=== PATIENT | female | born 1950 | race Caucasian/White ===

== ENCOUNTER 2018-01-17 06:34 | Emergency (ER) | payer MEDICARE, OTHER ==
[2018-01-17 06:42] VITALS: TEMP 98.2
[2018-01-17] MEDS ORDERED: ONDANSETRON 4 MG/2 ML VIAL IVP STA (07:13)
[2018-01-17] MEDS ORDERED: diphenhydrAMINE 50 MG/ML 1 ML VIAL IVP STA (07:13)
[2018-01-17] MEDS ORDERED: SODIUM CHLORIDE 0.9% 1,000 ML IV STA (07:13)
--- NOTE | 2018-01-17 07:15 | ED ---
General Adult HPI - General Chief complaint: Nausea/Vomiting/Diarrhea Stated complaint: Nausea, vomiting, headache Time Seen by Provider: 01/17/18 07:01 Source: patient, family Mode of arrival: ambulatory Limitations: no limitations - History of Present Illness Initial comments: 67years female complains about headache, nausea, vomiting, poor appetite she states pins and needles feels flushed. She was treated with the antihistamine with decongestant Zantac and prednisone 50 days ago for an ALLERGIC reaction she feels she is reacting to one of these medications. Does have a headache no chest pain as such she came in with a tachycardia heart rate was 121 he denies any shortness of breath now no no chest pain with a deep breaths no fever no chills no cough - Related Data Home Medications Medication Instructions Recorded Confirmed Levothyroxine Sodium [Synthroid] 25 mcg PO DAILY 05/01/15 01/17/18 Cholecalciferol [Vitamin D3] 1,000 unit PO DAILY 01/17/18 01/17/18 Lofibra Unknown Dose 1 tab PO DAILY 01/17/18 01/17/18 Ranitidine HCl [Zantac] 150 mg PO HS 01/17/18 01/17/18 methylPREDNISolone [Medrol Dose See Taper PO DAILY 01/17/18 01/17/18 Pack] Allergies Allergy/AdvReac Type Severity Reaction Status Date / Time propoxyphene napsylate Allergy Unknown Verified 01/17/18 07:04 [From Aranza] Review of Systems ROS Statement: Those systems with pertinent positive or pertinent negative responses have been documented in the HPI. ROS Other: All systems not noted in ROS Statement are negative. Past Medical History Past Medical History: GERD/Reflux, Hyperlipidemia, Thyroid Disorder History of Any Multi-Drug Resistant Organisms: None Reported Past Surgical History: Orthopedic Surgery Additional Past Surgical History / Comment(s): eye surgery and right knee arthroscopy Past Psychological History: No Psychological Hx Reported Smoking Status: Never smoker Past Alcohol Use History: None Reported Past Drug Use History: None Reported General Exam - General Exam Comments Initial Comments: General: The patient is awake and alert, in no distress, and does not appear acutely ill. Does look tired Skin: Skin is warm and dry and no rashes or lesions are noted. Eye: Pupils are equal, round and reactive to light, extra-ocular movements are intact; there is normal conjunctiva bilaterally. Ears, nose, mouth and throat: There are moist mucous membranes and no oral lesions. Neck: The neck is supple, there is no tenderness or JVD. Cardiovascular: There is a regular rate and rhythm. No murmur, rub or gallop is appreciated. Respiratory: To auscultation bilateral, no wheezing no rhonchi no distress respiratory schumacher noticed Gastrointestinal: Soft, non-distended, non-tender abdomen without masses or organomegaly noted. There is no rebound or guarding present. Bowel sounds are unremarkable. Back: There is no tenderness to palpation in the midline. There is no obvious deformity. Musculoskeletal: Normal ROM, no tenderness, There is no pedal edema. There is no calf tenderness or swelling. No cords were appreciated. Neurological: CN II-XII intact, Cranial nerves III through XII are intact. There are no obvious motor or sensory deficits. Coordination appears grossly intact. Speech is normal. Psychiatric: Cooperative, appropriate mood & affect, normal judgment. Limitations: no limitations Course Vital Signs 01/17/18 01/17/18 06:35 08:17 Temperature 98.2 F Pulse Rate 121 H 61 Respiratory 20 17 Rate Blood Pressure 187/81 154/74 O2 Sat by Pulse 99 95 Oximetry Reassessed at term 8:20 AM, she feels lot better her CBC, CMP, troponin, EKG are unremarkable. She is advised to discontinue the Z-Talon be in the prednisone because prednisone and Zantac the both cutdown gives a palpitation and the symptoms he had, she is advised to continue Zantac 150 mg twice daily for next 34 days and switch back to Claritin without the decongestant and avoid hot water showers with the lukewarm water for the ongoing skin rash EKG Findings - EKG Comments: EKG Findings:: EKG is a sinus rhythm ventricular rate is 62 MA interval is 136 QRS duration is 92 QT/QTc is 480/424 review of this EKG does not reveal any ST elevation or ST depression Medical Decision Making - Lab Data Result diagrams: 01/17/18 07:00 01/17/18 07:00 Lab Results 01/17/18 01/17/18 01/17/18 Range/Units 07:00 07:00 07:00 WBC 8.6 (3.8-10.6) k/uL RBC 4.77 (3.80-5.40) m/uL Hgb 14.6 (11.4-16.0) gm/dL Hct 42.1 (34.0-46.0) % MCV 88.2 (80.0-100.0) fL MCH 30.6 (25.0-35.0) pg MCHC 34.7 (31.0-37.0) g/dL RDW 11.9 (11.5-15.5) % Plt Count 336 (150-450) k/uL Neutrophils % 72 % Lymphocytes % 19 % Monocytes % 6 % Eosinophils % 1 % Basophils % 0 % Neutrophils # 6.2 (1.3-7.7) k/uL Lymphocytes # 1.7 (1.0-4.8) k/uL Monocytes # 0.5 (0-1.0) k/uL Eosinophils # 0.1 (0-0.7) k/uL Basophils # 0.0 (0-0.2) k/uL PT (9.0-12.0) sec INR (<1.2) APTT (22.0-30.0) sec Sodium 142 (137-145) mmol/L Potassium 4.0 (3.5-5.1) mmol/L Chloride 103 (98-107) mmol/L Carbon Dioxide 25 (22-30) mmol/L Anion Gap 14 mmol/L BUN 15 (7-17) mg/dL Creatinine 0.57 (0.52-1.04) mg/dL Est GFR (CKD-EPI)AfAm >90 (>60 ml/min/1.73 sqM) Est GFR (CKD-EPI)NonAf >90 (>60 ml/min/1.73 sqM) Glucose 122 H (74-99) mg/dL Calcium 10.2 (8.4-10.2) mg/dL Magnesium 2.0 (1.6-2.3) mg/dL Total Bilirubin 0.9 (0.2-1.3) mg/dL AST 20 (14-36) U/L ALT 29 (9-52) U/L Alkaline Phosphatase 57 (38-126) U/L Total Creatine Kinase 25 L (30-135) U/L CK-MB (CK-2) 0.3 (0.0-2.4) ng/mL CK-MB (CK-2) Rel Index 1.2 Troponin I <0.012 (0.000-0.034) ng/mL Total Protein 7.5 (6.3-8.2) g/dL Albumin 4.8 (3.5-5.0) g/dL 01/17/18 Range/Units 07:00 WBC (3.8-10.6) k/uL RBC (3.80-5.40) m/uL Hgb (11.4-16.0) gm/dL Hct (34.0-46.0) % MCV (80.0-100.0) fL MCH (25.0-35.0) pg MCHC (31.0-37.0) g/dL RDW (11.5-15.5) % Plt Count (150-450) k/uL Neutrophils % % Lymphocytes % % Monocytes % % Eosinophils % % Basophils % % Neutrophils # (1.3-7.7) k/uL Lymphocytes # (1.0-4.8) k/uL Monocytes # (0-1.0) k/uL Eosinophils # (0-0.7) k/uL Basophils # (0-0.2) k/uL PT 10.5 (9.0-12.0) sec INR 1.1 (<1.2) APTT 21.0 L (22.0-30.0) sec Sodium (137-145) mmol/L Potassium (3.5-5.1) mmol/L Chloride (98-107) mmol/L Carbon Dioxide (22-30) mmol/L Anion Gap mmol/L BUN (7-17) mg/dL Creatinine (0.52-1.04) mg/dL Est GFR (CKD-EPI)AfAm (>60 ml/min/1.73 sqM) Est GFR (CKD-EPI)NonAf (>60 ml/min/1.73 sqM) Glucose (74-99) mg/dL Calcium (8.4-10.2) mg/dL Magnesium (1.6-2.3) mg/dL Total Bilirubin (0.2-1.3) mg/dL AST (14-36) U/L ALT (9-52) U/L Alkaline Phosphatase (38-126) U/L Total Creatine Kinase (30-135) U/L CK-MB (CK-2) (0.0-2.4) ng/mL CK-MB (CK-2) Rel Index Troponin I (0.000-0.034) ng/mL Total Protein (6.3-8.2) g/dL Albumin (3.5-5.0) g/dL Disposition Clinical Impression: Tachycardia Disposition: HOME SELF-CARE Condition: Good Instructions: Palpitations (ED) Is patient prescribed a controlled substance at d/c from ED?: No Referrals: Tru Mann DO [Primary Care Provider] - 1-2 days
[2018-01-17] MEDS ORDERED: ACETAMINOPHEN TAB 500 MG TAB PO STA (07:16)
[2018-01-17 07:28] LABS: Basophils % (A) 0 %; Eosinophils # (A) 0.1 k/uL (0-0.7); Eosinophils % (A) 1 %; HCT 42.1 % (34.0-46.0); HGB 14.6 gm/dL (11.4-16.0); Lymphocytes # (A) 1.7 k/uL (1.0-4.8); Lymphocytes % (A) 19 %; MCH 30.6 pg (25.0-35.0); MCHC 34.7 g/dL (31.0-37.0); MCV 88.2 fL (80.0-100.0); Mean Platelet Volume 7.2; Monocytes # (A) 0.5 k/uL (0-1.0); Monocytes % (A) 6 %; Neutrophils # (A) 6.2 k/uL (1.3-7.7); Neutrophils % (A) 72 %; Platelet Count 336 k/uL (150-450); RBC 4.77 m/uL (3.80-5.40); RDW 11.9 % (11.5-15.5); WBC 8.6 k/uL (3.8-10.6)
[2018-01-17 07:37] LABS: INR 1.1 (<1.2); Prothrombin Time 10.5 sec (9.0-12.0)
[2018-01-17 07:42] LABS: ALT 29 U/L (9-52); AST 20 U/L (14-36); Albumin 4.8 g/dL (3.5-5.0); Alkaline Phosphatase 57 U/L (38-126); Anion Gap 14 mmol/L; Blood Urea Nitrogen 15 mg/dL (7-17); Calcium 10.2 mg/dL (8.4-10.2); Carbon Dioxide 25 mmol/L (22-30); Chloride 103 mmol/L (98-107); Glucose 122 mg/dL (74-99); Sodium 142 mmol/L (137-145); Total Bilirubin 0.9 mg/dL (0.2-1.3); Total Protein 7.5 g/dL (6.3-8.2)
--- NOTE | 2018-01-17 07:56 | XR ---
EXAMINATION TYPE: XR chest 2V DATE OF EXAM: 01/17/2018 COMPARISON: NONE HISTORY: Cough, congestion, and sinus drainage. TECHNIQUE: Frontal and lateral views of the chest are obtained. FINDINGS: There is no focal air space opacity, pleural effusion, or pneumothorax seen. The cardiac silhouette size is within normal limits. The osseous structures are intact. Small Schmorl's node is seen of the mid thoracic superior endplate. Anterior vertebral body height is maintained. IMPRESSION: No acute cardiopulmonary process.
[2018-01-17 08:01] LABS: Creatine Kinase 25 U/L (30-135)
[2018-01-17 08:13] LABS: Creatine Kinase MB 0.3 ng/mL (0.0-2.4); Troponin I <0.012 ng/mL (0.000-0.034)
[2018-01-17 08:18] VITALS: BP 154/74; PULSE 61; RESP 17
== END 2018-01-17 09:01 | disposition home or self-care (01) ==
LOC: EC 06:34
DX: R00.0 Tachycardia, unspecified (principal); R51 Headache; R53.83 Other fatigue; R11.2 Nausea with vomiting, unspecified; R63.8 Other symptoms and signs concerning food and fluid intake; E78.5 Hyperlipidemia, unspecified; K21.9 Gastro-esophageal reflux disease without esophagitis; E07.9 Disorder of thyroid, unspecified; Z79.52 Long term (current) use of systemic steroids; Z79.899 Other long term (current) drug therapy; Z88.5 Allergy status to narcotic agent
CPT/HCPCS: 36415; 93005; 80053; 82550; 82553; 83735; 84443; 84484; 85025; 85610; 85730; 71046; 99284; 96374; 96375; 96361; J1200; J2405

== ENCOUNTER → 2018-10-16 | Outpatient (CLI) | payer MEDICARE, OTHER ==
--- NOTE | 2018-10-16 14:37 | MR ---
EXAMINATION TYPE: MR lumbar spine wo con DATE OF EXAM: 10/16/2018 COMPARISON: MRI of lumbar spine July 07, 2010. HISTORY: Low back pain per order. Pain for years going into right buttocks thigh and calf per patient . TECHNIQUE: Multiplanar, multisequence imaging of the lumbar spine is performed without IV contrast. FINDINGS: Sagittal images of the lumbar spine show vertebral body heights and alignment to remain sat isfactory. Multilevel disc desiccation is seen with progression from 2010 MRI. There is new mild to m oderate disc space narrowing L2-L3 level and mild disc space narrowing L5-S1 level with vacuum disc p henomenon. Small posterior disc herniations are seen at these levels as well as at L4-L5 level on sag ittal images. The conus medullaris remains normal in position and signal ending mid L1 level. The b one marrow signal intensity is overall heterogeneous. Mild to moderate multilevel anterior spurring i s present. Axial images at the T12-L1 level appears within normal limits. Axial images at the L1-L2 level show new left paracentral/foraminal disc protrusion measuring 14 mm t ransversely axial image 23 effacing anterolateral thecal sac encroaching near central left L2 nerve, bilateral neural foramina remain patent. Axial images at L2-L3 level show new mild/moderate broad disc bulge mildly effacing anterior thecal s ac on axial image 18, bilateral neural foramina are patent. Axial images at L3-L4 level remain within normal limits. Axial images at the L4-L5 level show mild to moderate broad disc bulge with broad-based right paracen tral disc protrusion component mildly effacing anterior thecal sac and causing mild bilateral anterio r inferior neural foraminal narrowing. No significant change from prior. Axial images at the L5-S1 level show mild facet degenerative changes bilaterally. There is central di sc protrusion seen but spinal canal is preserved. Bilateral neural foramina are patent. There is redemonstration of central parapelvic cysts in the left kidney similar appearance to prior M RI. IMPRESSION: Multilevel degenerative changes in the lumbar spine as detailed above with some progressi on from the 2010 MRI particularly at L1-L2 and L2-L3 levels.
--- NOTE | 2018-10-16 14:55 | MR ---
EXAMINATION TYPE: MR hip RT wo con DATE OF EXAM: 10/16/2018 COMPARISON: None. HISTORY: Right hip pain Standard multiplanar, multisequence MRI departmental protocol Multiplanar, multisequence images of the pelvis focus in the right hip were acquired. FINDINGS: Bone marrow signal intensity in visualized portion of pelvis including both hips shows no s uspicious edema. No serpiginous low T1 signal is identified to suggest avascular necrosis. Femoral he ad shapes are maintained bilaterally. There are small to moderate left slightly larger than right hip joint effusions present. Mild increased fluid signal seen at level of greater trochanters bilaterally. Slightly more prominent vertical fluid is noted consistent with partial tear at insertion on the right side. Muscle bulk in bilateral thighs is symmetric and felt within normal limits. No suspicious groin adeno radha is seen. No suspicious bowel or fat-containing groin hernia is are noted. There is symmetric m ild to moderate superior joint space loss in both hips. No significant spurring is seen. Visualized portion of pelvis shows diverticula in the sigmoid colon. Bladder is felt within normal li mits. Uterus is anteverted extending to the left of midline. No free pelvic fluid is noted. IMPRESSION: Mild to moderate degenerative changes in the right hip as detailed above fairly symmetric to opposite left side. There is mild to moderate greater trochanteric bursitis and partial tearing at tendon ins ertion at this level.
== END | disposition home or self-care (01) ==
LOC: RADMRIMAIN 12:44
PROVIDERS: ATTEND Family Medicine
DX: M99.73 Connective tissue and disc stenosis of intervertebral foramina of lumbar region (principal); M48.061 Spinal stenosis, lumbar region without neurogenic claudication; M51.26 Other intervertebral disc displacement, lumbar region; M47.816 Spondylosis without myelopathy or radiculopathy, lumbar region; S76.011A Strain of muscle, fascia and tendon of right hip, initial encounter; M16.11 Unilateral primary osteoarthritis, right hip; M70.61 Trochanteric bursitis, right hip
CPT/HCPCS: 72148

== ENCOUNTER 2019-05-09 21:02 | Emergency (ER) | payer MEDICARE, OTHER ==
[2019-05-09] MEDS ORDERED: PROPARACAINE 0.5% OPHTH DROPS 15 ML BTL RIGHT EYE STA (21:44)
[2019-05-09] MEDS ORDERED: ERYTHROMYCIN 5 MG/GM OPHTH OINT 3.5 GM TUBE RIGHT EYE STA (22:36)
--- NOTE | 2019-05-09 22:53 | ED ---
General Adult HPI - General Chief complaint: Eye Problems Stated complaint: Eye pain Time Seen by Provider: 05/09/19 21:22 Source: patient, RN notes reviewed, old records reviewed Mode of arrival: ambulatory Limitations: no limitations - History of Present Illness Initial comments: 68-year-old male patient presents to ED with chief complaint of right eye pain. Patient reports that she was working outside today. States that she felt that her eyes became dry and irritated from the when it was rubbing them. Patient worse as the day progressed her eye became more irritated and painful. Patient does not remember specifically scratching or getting anything in the eye. Patient is not a contact lens wearer. Patient reports the vision is at baseline. Denies any new onset floaters, photopsia is, flashes of light. States the tetanus is up-to-date. Systemic: Pt denies fatigue, fever/chills, rash. Pt denies weakness, night sweats, weight loss. Neuro: Pt denies headache, visual disturbances, syncope or pre-syncope. HEENT: Pt denies otalgia, rhinorrhea, pharyngitis or notable lymphadenopathy. Cardiopulmonary: Pt denies chest pain, SOB, heart palpitations, dyspnea on exertion. Abdominal/GI: Pt denies abdominal pain, n/v/d. : Pt denies dysuria, burning w/ urination, frequency/urgency. Denies new onset urinary or bowel incontinence. MSK: Pt denies myalgia, loss of strength or function in extremities. Neuro: Pt denies new onset weakness, paresthesias. - Related Data Home Medications Medication Instructions Recorded Confirmed Levothyroxine Sodium [Synthroid] 25 mcg PO DAILY 05/01/15 01/17/18 Cholecalciferol [Vitamin D3] 1,000 unit PO DAILY 01/17/18 01/17/18 Lofibra Unknown Dose 1 tab PO DAILY 01/17/18 01/17/18 Ranitidine HCl [Zantac] 150 mg PO HS 01/17/18 01/17/18 methylPREDNISolone [Medrol Dose See Taper PO DAILY 01/17/18 01/17/18 Pack] Previous Rx's Medication Instructions Recorded Erythromycin Ophth Oint [Romycin 1 applic RIGHT EYE QID 5 Days #1 05/09/19 Ophth Oint] tube Allergies Allergy/AdvReac Type Severity Reaction Status Date / Time propoxyphene napsylate Allergy Unknown Verified 05/09/19 21:17 [From Yolie-N] Review of Systems ROS Statement: Those systems with pertinent positive or pertinent negative responses have been documented in the HPI. ROS Other: All systems not noted in ROS Statement are negative. Past Medical History Past Medical History: GERD/Reflux, Hyperlipidemia, Thyroid Disorder History of Any Multi-Drug Resistant Organisms: None Reported Past Surgical History: Orthopedic Surgery Additional Past Surgical History / Comment(s): eye surgery and right knee arthroscopy Past Psychological History: No Psychological Hx Reported Smoking Status: Never smoker Past Alcohol Use History: None Reported Past Drug Use History: None Reported General Exam - General Exam Comments Initial Comments: Constitutional: NAD, AOX3, Pt has pleasant affect. HEENT: NC/AT, trachea midline, neck supple, no lymphadenopathy. Posterior pharynx non erythematous, without exudates. External ears appear normal, without discharge. Mucous membranes moist. Eyes PERRLA, EOM intact. There is no scleral icterus. No pallor noted. Intraocular pressure average of 18 bilaterally. Fluorescein stain right eye revealed a small corneal abrasion at approximately 9:00. No injection. Cardiopulmonary: RRR, no murmurs, rubs or gallops, no JVD noted. Lungs CTAB in anterior and posterior ang. No peripheral edema. Abdominal exam: Abdomen soft and non-distended. Abdomen non-tender to palpation in all 4 quadrants. Bowel sounds active in LLQ. No hepatosplenomegaly. No ecchymosis Neuro: CN II-XII grossly intact. No nuchal rigidity. No raccon eyes, no soria sign, no hemotympanum. No cervical spinal tenderness. MSK: No posterior calf tenderness bilaterally, homans sign negative bilaterally. Posterior tibialis and radial pulse +2 bilaterally. Sensation intact in upper and lower extremities. Full active ROM in upper and lower extremities, 5/5 stregnth. Limitations: no limitations Course Vital Signs 05/09/19 21:16 Temperature 98.5 F Pulse Rate 82 Respiratory 20 Rate Blood Pressure 179/93 O2 Sat by Pulse 97 Oximetry Medical Decision Making - Medical Decision Making 68-year-old female patient presents to ED chief complaint of right eye irritation and pain. Patient vital signs stable. Physical exam displayed normal intraocular pressure. Small for sustained. Patient started on erythromycin eyedrops. Patient will follow-up with previously established safety physician. Patient given local safety physician consult as well. Will return to ER if condition worsens. Case discussed with Dr. Bartlett. Disposition Clinical Impression: Corneal abrasion, right Disposition: HOME SELF-CARE Condition: Stable Instructions (If sedation given, give patient instructions): Corneal Abrasion (ED) Additional Instructions: Patient to adhere to previously discussed treatment plan and will take medication(s) as directed. Patient to follow up with PCP in 1-2 days. Patient to return to ED if symptoms do not improve. Use antibiotics as prescribed. Follow up with previously established safety physician tomorrow. Given local safety physician referral if unable to follow up with your previously established safety physician. Return to ER if condition worsens in any way. Prescriptions: Erythromycin Ophth Oint [Romycin Ophth Oint] 1 applic RIGHT EYE QID 5 Days #1 tube Is patient prescribed a controlled substance at d/c from ED?: No Referrals: Tru Mann DO [Primary Care Provider] - 1-2 days Nathanael Sidhu MD [STAFF PHYSICIAN] - 1-2 days
[2019-05-09 23:04] VITALS: BP 146/76; PULSE 72; RESP 16; TEMP 98.1
== END 2019-05-09 22:58 | disposition home or self-care (01) ==
LOC: EC 21:02
DX: S05.01XA Injury of conjunctiva and corneal abrasion without foreign body, right eye, initial encounter (principal); K21.9 Gastro-esophageal reflux disease without esophagitis; E78.5 Hyperlipidemia, unspecified; E07.9 Disorder of thyroid, unspecified; Z88.5 Allergy status to narcotic agent; Z79.52 Long term (current) use of systemic steroids; Z79.890 Hormone replacement therapy; Z79.899 Other long term (current) drug therapy; Z98.890 Other specified postprocedural states; X58.XXXA Exposure to other specified factors, initial encounter; Y93.89 Activity, other specified; Y92.89 Other specified places as the place of occurrence of the external cause
CPT/HCPCS: 99283

== ENCOUNTER → 2021-02-11 | Outpatient (CLI) | payer MEDICARE, OTHER ==
--- NOTE | 2021-02-11 14:33 | CT ---
EXAMINATION TYPE: CT sinus wo con DATE OF EXAM: 02/11/2021 COMPARISON: 04/21/2013 HISTORY: Sinusitis. CT DLP: 570 mGycm. Automated Exposure Control for Dose Reduction was Utilized. TECHNIQUE: CT scan of the sinuses is performed without contrast, axial images are obtained, coronal r eformatted images are also reviewed. FINDINGS: The paranasal sinuses including the frontal, ethmoid, sphenoid, and maxillary sinuses bila terally are well-aerated without abnormal opacification. The ostiomeatal complex is patent bilateral ly on the coronal images. Visualized portion of mastoid air cells show no abnormal opacification. The globes are intact bilate rally. IMPRESSION: The sinuses are clear and the ostiomeatal complex is patent bilaterally.
== END | disposition home or self-care (01) ==
LOC: RADCTMAIN 13:56
PROVIDERS: ATTEND Otolaryngology
DX: J32.9 Chronic sinusitis, unspecified (principal)
CPT/HCPCS: 70486

== ENCOUNTER → 2021-03-11 | Outpatient (CLI) | payer MEDICARE, OTHER ==
[2021-03-12 02:55] LABS: T4, Free (Free Thyroxine) 1.1 ng/dL (0.80-1.80)
== END | disposition home or self-care (01) ==
LOC: LABWHC1 13:18
PROVIDERS: ATTEND Internal Medicine Endocrinology, Diabetes & Metabolism
DX: E03.9 Hypothyroidism, unspecified (principal); E04.2 Nontoxic multinodular goiter; E06.3 Autoimmune thyroiditis
CPT/HCPCS: 36415; 84439; 84443; 84481

== ENCOUNTER → 2021-07-21 | Outpatient (CLI) | payer MEDICARE, OTHER ==
[~2021-07-21] MED LIST: CASIRIVIMAB (REGN10933) (EUA) 600 MG, IMDEVIMAB (REGN10987) (EUA) 600 MG in SODIUM CHLO... IVPB ONE; SODIUM CHLORIDE 0.9% 50 ML IVPB ONE; SODIUM CHLORIDE 0.9% 500 ML 500 ML in EMPTY BAG 1 BAG IV PRN
--- NOTE | 2021-07-21 12:53 | ED ---
General Adult HPI - General Chief complaint: Upper Respiratory Infection Stated complaint: Covid test/Antibodies Time Seen by Provider: 07/21/21 11:30 Source: patient, RN notes reviewed, old records reviewed Mode of arrival: ambulatory Limitations: physical limitation - History of Present Illness Initial comments: Patient is a 70-year-old female with past medical history remarkable for GERD, thyroid disorder who presents emergency department for COVID-19 test. She is been having mild upper respirations symptoms for the last 3-6 days. She endorses occasional joint pain. Denies any chest pain, shortness breath, abdominal pain, nausea, vomiting. She was not vaccinated for COVID-19 and did not previously have COVID-19. She is told she may have the flu. Her has similar symptoms and tested positive for COVID-19. She presents for evaluation and possible monoclonal antibody therapy. - Related Data Home Medications Medication Instructions Recorded Confirmed Levothyroxine Sodium [Synthroid] 25 mcg PO DAILY 05/01/15 01/17/18 Amoxicillin 500 mg PO BID 07/21/21 07/21/21 Cholecalciferol [Vitamin D3 (25 50 mcg PO DAILY 07/21/21 07/21/21 Mcg = 1000 Iu)] Codeine Phosphate/Guaifenesin 5 ml PO Q6H PRN 07/21/21 07/21/21 [Guaiatussin AC Liquid] Fenofibrate,Micronized 134 mg PO DAILY 07/21/21 07/21/21 [Fenofibrate] Fluticasone Nasal [place] [Flonase 1 spray EA NOSTRIL DAILY PRN 07/21/21 07/21/21 Nasal [place]] Pantoprazole Sodium [Protonix] 40 mg PO DAILY 07/21/21 07/21/21 predniSONE 10 mg PO BID 07/21/21 07/21/21 Previous Rx's Medication Instructions Recorded Albuterol Inhaler [Ventolin Hfa 1 puff INHALATION RT-QID #8 gm 07/21/21 Inhaler] Allergies Allergy/AdvReac Type Severity Reaction Status Date / Time propoxyphene napsylate Allergy Rash/Hives Verified 07/21/21 13:15 [From Aranza] Review of Systems ROS Statement: Those systems with pertinent positive or pertinent negative responses have been documented in the HPI. Review of Systems: CONST: Denies fever EYES: Denies blurry vision ENT: Endorses nasal congestion C/V: Denies Chest pain RESP: Denies shortness of breath GI: Denies abdominal pain : Denies dysuria SKIN: Denies rash. MSK: Denies joint pain. NEURO: Denies headache ROS Other: All systems not noted in ROS Statement are negative. 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 HEAD: Normal with no signs of head trauma. EYES: EOMI ENT: Hearing grossly intact, normal oropharynx. Nasal congestion. RESPIRATORY: Clear breath sounds bilaterally. No wheezes, rales, or rhonchi. No hypoxia. No increased work of breathing. C/V: Regular rate and rhythm. S1 and S2 auscultated, no edema, peripheral pu lses 2+ and intact throughout ABD: Abd is soft, nontender, nondistended EXT: Normal range of motion, no obvious deformity SKIN: No rashes or lesions observed on exposed skin. NEURO: Alert and oriented 4. Limitations: physical limitation Course Vital Signs 07/21/21 07/21/21 07/21/21 11:30 11:39 13:25 Temperature 98.4 F 97.9 F Pulse Rate 68 62 Respiratory 18 18 16 Rate Blood Pressure 195/92 157/93 O2 Sat by Pulse 100 98 Oximetry 07/21/21 14:23 Temperature 97.9 F Pulse Rate 67 Respiratory 16 Rate Blood Pressure 152/74 O2 Sat by Pulse 100 Oximetry Medical Decision Making - Medical Decision Making Patient presents for Covid Test and monoclonal antibiotic therapy. Covid test was positive. We discussed at length the monoclonal antibodies and I answered all questions that she had. She did consent to therapy. I do not believe that she requires further laboratory studies or imaging at this time. She is not hypoxic and is in no respiratory distress. Patient tolerated the therapy well. I recommended she obtain a pulse oximeter as well as quarantine with her . I will provide the patient with a prescription for albuterol. I instructed the patient to follow up with their PCP in the next 3 days. I explained that the patient should return to the emergency department if they experience any worsening symptoms. Strict return precautions were discussed with the patient. The patient expressed understanding of these instructions. I answered all questions that the patient had. The patient was discharged home in good condition with their prescriptions and follow up information. - Lab Data Lab Results 07/21/21 Range/Units 11:42 Coronavirus (PCR) Detected A (Not Detectd) Disposition Clinical Impression: COVID-19 virus infection Disposition: HOME SELF-CARE Condition: Fair Instructions (If sedation given, give patient instructions): Coronavirus Disease 2019 (COVID-19) Prescriptions: Albuterol Inhaler [Ventolin Hfa Inhaler] 1 puff INHALATION RT-QID #8 gm Is patient prescribed a controlled substance at d/c from ED?: No Referrals: Tru Mann DO [Primary Care Provider] - 1-2 days
[2021-07-21 13:48] VITALS: RESP 16; TEMP 97.9
[2021-07-21 14:24] VITALS: BP 152/74; PULSE 67
== END ==
LOC: EC 11:28 → PROCWHC3 11:28 → EDSTATUS 13:22
PROVIDERS: ATTEND Student in an Organized Health Care Education/Training Program
DX: U07.1 COVID-19 (principal); Z88.8 Allergy status to other drugs, medicaments and biological substances
CPT/HCPCS: 87635; Q0244; M0243

== ENCOUNTER → 2022-01-05 | Outpatient (CLI) | payer MEDICARE, OTHER ==
[2022-01-05 19:17] LABS: T4, Free (Free Thyroxine) 1.19 ng/dL (0.800-1.800)
== END | disposition home or self-care (01) ==
LOC: LABWHC1 11:30
PROVIDERS: ATTEND Internal Medicine Endocrinology, Diabetes & Metabolism
DX: E03.9 Hypothyroidism, unspecified (principal); E04.2 Nontoxic multinodular goiter; E06.3 Autoimmune thyroiditis
CPT/HCPCS: 36415; 84439; 84443; 84481

== ENCOUNTER → 2023-07-18 | Outpatient (CLI) | payer MEDICARE, OTHER ==
[2023-07-18 18:50] LABS: T4, Free (Free Thyroxine) 1.09 ng/dL (0.80-1.80)
== END | disposition home or self-care (01) ==
LOC: LABWHC1 13:54
PROVIDERS: ATTEND Internal Medicine Endocrinology, Diabetes & Metabolism
DX: E03.9 Hypothyroidism, unspecified (principal); E04.2 Nontoxic multinodular goiter; E06.3 Autoimmune thyroiditis
CPT/HCPCS: 36415; 84439; 84443; 84481

== ENCOUNTER → 2024-02-15 | Outpatient (CLI) | payer MEDICARE, OTHER ==
--- NOTE | 2024-02-15 16:56 | XR ---
EXAMINATION TYPE: XR chest 2V DATE OF EXAM: 02/15/2024 4:39 PM CLINICAL INDICATION:Female, 73 years old with history of R06.02 SOB; [facility] COMPARISON: Chest radiographs from 01/17/2018 TECHNIQUE: XR chest 2V Frontal view of the chest. FINDINGS: Lungs/Pleura: There is flattening of the diaphragm with increased lucency of the lungs. No evidence o f pneumothorax, pleural effusion or focal consolidation. Pulmonary vascularity: Unremarkable. Heart/mediastinum: Cardiomediastinal silhouette is unremarkable. Musculoskeletal: No acute osseous pathology. IMPRESSION: 1. No acute cardiopulmonary disease process. 2. COPD changes.
== END | disposition home or self-care (01) ==
LOC: RADXRMAIN 16:15
PROVIDERS: ATTEND Family Medicine
DX: J44.9 Chronic obstructive pulmonary disease, unspecified (principal)
CPT/HCPCS: 71046

== ENCOUNTER → 2024-05-06 | Outpatient (CLI) | payer MEDICARE, OTHER ==
--- NOTE | 2024-05-08 12:00 | MR ---
EXAMINATION TYPE: MR knee LT wo con DATE OF EXAM: 05/06/2024 COMPARISON: None HISTORY: Left knee pain. TECHNIQUE: Multiplanar, multisequence images of the knee is performed without IV contrast. FINDINGS: MEDIAL MENISCUS: Radial tear posterior horn medial meniscus. Anterior horn is intact. LATERAL MENISCUS: Anterior and posterior horns are intact without tear. CRUCIATE LIGAMENTS: The anterior and posterior cruciate ligaments are intact and unremarkable. COLLATERAL LIGAMENTS: The medial collateral ligament and lateral collateral ligament complex are inta ct and unremarkable. EXTENSOR MECHANISM: Visualized quadriceps and patellar tendons are intact. EFFUSION: No significant suprapatellar joint effusion. POPLITEAL CYST: Bilobed Hein's cyst measuring approximately 2.8 cm in length. TRICOMPARTMENT SPACES: Mild narrowing medial tibiofemoral joint space. CARTILAGE: Intact BONE MARROW SIGNAL: No focal abnormal marrow signal is appreciated. OTHER: No additional significant abnormality is appreciated. IMPRESSION: 1. Radial tear posterior horn medial meniscus. 2. Hein's cyst. [facility], , 05/08/2024 11:58 AM
== END | disposition home or self-care (01) ==
LOC: RADMRIMAIN 13:25
PROVIDERS: ATTEND Family Medicine
DX: M19.90 Unspecified osteoarthritis, unspecified site